=== PATIENT | female | born 1950 | race Caucasian/White ===

== ENCOUNTER → 2017-03-01 | Outpatient (CLI) | payer MEDICARE, BC ==
[~2017-03-01] MED LIST: CETI-269 PO; CYCL-375 PO; FLUT9.9S EA NOSTRIL; GADOBUTROL 10mMol/10ml INJECTION IV ONE; HYDR-4078 PO; NAPR220T61 PO; OXYB10TA PO; PROP60CA2 PO; SALINE FLUSH 10ml SYRINGE ONE; SENN-125 PO; SODI30SP3 NAS
--- NOTE | 2017-03-01 14:30 | DI ---
Indication: ITS.REASON: M54.16 LUMBAR RADICULOPATHY PROCEDURE: CT LUMBAR SPINE W/O CONTRAST: Encounter: Initial Comparison: None Technique: Axial noncontrast CT imaging of the lumbar spine was performed with coronal and sagittal two-dimensional reformats. Automated Exposure Control and Iterative Reconstruction dose reducing techniques were utilized. FINDINGS: The alignment of the lumbar spine is abnormal with grade 1 degenerative anterolisthesis of L4 on L5. Posterior L2-L5 spinal fusion with pedicle screws and rods. This causes metallic artifact. No definite evidence of hardware loosening or failure. No acute fracture identified. Multiple Schmorl's nodes in the lower thoracic and lumbar spine. Paraspinal soft tissues show no acute findings. Segmental analysis: L1-L2: Degenerative facet disease with a small disk osteophyte complex contributing to moderate central canal stenosis. Severe bilateral neural foraminal stenosis. L2-L3: Posterior decompression. Mild bony neural foraminal stenosis bilaterally. L3-L4: Posterior decompression. Degenerative facet hypertrophy. No significant neural foraminal stenosis. L4-L5: Posterior decompression. No significant neural foraminal stenosis. L5-S1: Posterior decompression. Mild left and moderate right neural foraminal stenosis. Impression: Postoperative and degenerative changes as above. .
--- NOTE | 2017-03-01 15:36 | DI ---
Indication: ITS.REASON: M54.16 LUMBAR RADICULOPATHY PROCEDURE: MRI LUMBAR SPINE W/WO CONTRAST: Encounter: Initial Comparison: CT lumbar spine from today Technique: Multiplanar multisequence MR imaging of the lumbar spine was performed with and without contrast. Contrast: 10 mL Gadavist Findings: Alignment lumbar spine is stable from today's comparison. There is degenerative grade 1 anterolisthesis of L4 on L5. No acute fracture identified. Posterior L2-L5 spinal fusion with decompression is noted. There is no obvious evidence of hardware loosening or failure by MRI. Conus medullaris terminates normally at L2. The paraspinal soft tissues are unremarkable. Segmental analysis: L1-L2: Disk osteophyte complex with degenerative facet change resulting in moderate central canal stenosis. Moderate to severe bilateral neural foraminal stenosis. L2-L3: Posterior decompression. No focal disk herniation. Mild bilateral neural foraminal stenosis. L3-L4: Posterior decompression. Moderate disk height loss. Mild bilateral neural foraminal stenosis. L4-L5: Posterior decompression. No focal disk herniation. Degenerative facet hypertrophy. No significant neural foraminal stenosis. L5-S1: No focal disk herniation. Posterior decompression. Moderate bilateral neural foraminal stenosis. Postcontrast images show no areas of concerning postcontrast enhancement. Impression: No MR evidence of hardware loosening or infection. Degenerative disk and facet changes with areas of neural foraminal stenosis as above. .
== END ==
LOC: IMA 13:40
PROVIDERS: ATTEND Family Medicine
DX: M48.06 Spinal stenosis, lumbar region (principal); M47.896 Other spondylosis, lumbar region; M51.36 Other intervertebral disc degeneration, lumbar region; Z98.890 Other specified postprocedural states; M54.16 Radiculopathy, lumbar region
CPT/HCPCS: 72131; 72158; A9585

== ENCOUNTER 2017-05-30 05:26 | Inpatient (IN) ==
[2017-05-30] MEDS ORDERED: ONDANSETRON 4 MG/2 ML INJECTION IVP ONE (05:33)
[2017-05-30] MEDS ORDERED: CEFAZOLIN 1 G INJECTION IVP ONE (05:33)
[2017-05-30] MEDS ORDERED: EPINEPHrine 0.25 MG, BUPIVACAINE 0.25% PF 30 ML, MORPHINE SULFATE 15 MG, KETOROLAC INJ ... OPSITE ONE (05:33)
[2017-05-30] MEDS ORDERED: DEXAMETHASONE 4 MG/ML INJECTION IVP ONE (05:33)
[2017-05-30] MEDS ORDERED: MELOXICAM 15 MG TABLET PO ONE (05:33)
[2017-05-30] MEDS ORDERED: FAMOTIDINE PB 20 MG/50 ML BAG IV ONE (05:33)
[2017-05-30] MEDS ORDERED: NOZIN NASAL SWAB NAS ONE ×2 (05:33→10:59)
[2017-05-30] MEDS ORDERED: ACETAMINOPHEN 500 MG TABLET PO ONE (05:33)
[2017-05-30] MEDS ORDERED: SALINE FLUSH 10ml SYRINGE IVF PRN (05:33)
[2017-05-30] MEDS ORDERED: LIDOCAINE 1% (10mg/ml) 10mL MDV SQ ONE (05:33)
[2017-05-30] MEDS ORDERED: METOCLOPRAMIDE 10mg/2ml INJECTION IVP ONE (05:33)
[2017-05-30 05:51] VITALS: BMI 38.7
[2017-05-30] MEDS: LR 1,000 ML IV SCH ×2 (06:10→08:45)
[2017-05-30] MEDS ORDERED: LIDOCAINE 1% (10mg/ml) 2mL INJ PF SDV ID ONE (06:11)
[2017-05-30] MEDS ORDERED: VANCOMYCIN 1,000 MG INJECTION ONE ×2 (06:12→06:13)
--- NOTE | 2017-05-30 06:59 | History & Physical Update ---
- History and Physical Update Date: 05/30/17 Update: I evaluated this patient and found no changes in the history and clinical exam findings. The treatment plan and recommendations are also unchanged from the previous documentation.
[2017-05-30] MEDS ORDERED: TRANEXAMIC ACID 1gm/NS 100ml IRR MIX IR ONE (07:00)
[2017-05-30] MEDS ORDERED: SUCCINYLCHOLINE 20mg/mL 10mL INJECTION ONE (07:02)
[2017-05-30] MEDS ORDERED: PROPOFOL 20 ML ONE (07:02)
[2017-05-30] MEDS ORDERED: LIDOCAINE 2% JELLY Tube 30ml ONE (07:04)
[2017-05-30] MEDS ORDERED: FentaNYL 100 MCG/2 ML INJECTION ONE (07:14)
[2017-05-30] MEDS ORDERED: HYDROMORPHONE 2 MG/ML INJECTION ONE (07:25)
[2017-05-30] MEDS ORDERED: ONDANSETRON 4 MG/2 ML INJECTION ONE (07:26)
[2017-05-30] MEDS ORDERED: DEXAMETHASONE 4 MG/ML INJECTION ONE (07:26)
[2017-05-30] MEDS ORDERED: DiphenhydrAMINE 50 MG/ML INJECTION ONE (07:26)
[2017-05-30] MEDS ORDERED: EPHEDRINE 50mg/ml INJECTION ONE (07:41)
[2017-05-30] MEDS ORDERED: SALINE FLUSH 10ml SYRINGE ONE (07:41)
--- NOTE | 2017-05-30 08:03 | Anesthesia Preoperative Report ---
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 Proposed Procedure: right total hip, robotic NPO Since Date: 05/29/17 NPO Since Time: 23:00 (po meds this am, small sip) Allergies/Adverse Reactions: Allergies Allergy/AdvReac Type Severity Reaction Status Date / Time No Known Allergies Allergy Verified 05/30/17 05:46 - Vital Signs Vital Signs: Temperature 97.6 F 05/30/17 05:49 Pulse Rate 67 05/30/17 05:49 Respiratory Rate 16 05/30/17 05:49 Blood Pressure 141/66 H 05/30/17 05:49 Pulse Oximetry 95 05/30/17 05:49 Oxygen Delivery Method Room Air Height and Weight: Height 5 ft 6 in Weight 108.9 kg Body Mass Index 38.7 - Medications Inpatient Medications: Current Medications Lactated Ringer's (Lactated Ringers) 1,000 mls @ 50 mls/hr IV .Q20H GEMA Sodium Chloride (Iv Flush) 10 - 80 ml IVF PRN PRN PRN Reason: [place] Home Medications: Home Medications Medication Instructions Recorded Confirmed Type Cyclobenzaprine HCl 1 tab PO HS PRN #0 tab 03/09/17 05/30/17 History Oxybutynin Chloride [Oxybutynin 1 tab PO DAILY #0 03/09/17 05/30/17 History Chloride ER] Sennosides/Docusate Sodium [Eql 2 tab PO DAILY #0 03/09/17 05/30/17 History Stool Softener-Stim Lax Tb] Sodium Chloride [Saline Nasal 1 - 2 spray CHRISTIANO DAILY #0 ml 03/09/17 05/30/17 History [place]] Acetaminophen [Tylenol] 1 - 2 tab PO HS PRN 05/11/17 05/30/17 History Hydrocodone/APAP 5/325 [[place] 1 tab PO HS PRN 05/11/17 05/30/17 History 5/325] Naproxen Sodium [Aleve] 1 cap PO BIDWM PRN 05/11/17 05/30/17 History Polyethylene Glycol 3350 [Miralax] 17 gm PO DAILY 05/11/17 05/30/17 History Is Patient on Beta Ebony?: Yes Beta Ebony Last Dose Date/Time: propranolol this am for migraines - Medical History Respiratory: Reports: Sleep Apnea DENIES: Asthma, Chronic Obstructive Pulmonary Disease (COPD), Pulmonary Embolism Cardiovascular: Reports: Hypertension DENIES: Abnormal EKG, Angina, Coronary Artery Disease, Heart Murmur, Myocardial Infarction Gastrointestional: DENIES: Gastroesophageal Reflux Disease Neuro/Musculoskeletal: Reports: Back Problems (lumbar fusion hx) Denies: Seizures Renal/Endocrine: DENIES: Diabetes Mellitus Type 2 Other History: DENIES: Anesthesia Reactions - Surgical History HEENT Surgeries: Reports: Tonsillectomy, Other (Exc soft tissue mass of neck) Cardiac Surgeries/Treatments: Reports: Cardiac Catheterization (NEGATIVE ABOUT 2012) Respiratory Surgery/Treatments: Reports: CPAP Use GI Surgery/Treatments: Reports: Appendectomy, Cholecystectomy Musculoskeletal Surgery/Tx: Reports: Total Knee Replacement (Rt & Lt), Other ( lumbar back x2, with hardware) Reproductive Surgery/Treatment: Reports: Tubal Ligation Anesthesia Reactions: None Hx Family Anesthesia Reaction: No History of Motion Sickness: No - Social History Smoking Status: Former smoker Hx Chewing Tobacco Use: No Second Hand Exposure: No Substance Use Type: does not use Alcohol Intake Frequency: does not drink - Pertinent Findings EKG Rhythm: Normal Sinus Rhythm - Physical Exam Respiratory Exam: Present: lungs clear Cardiovascular Exam: Present: regular rate and rhythm - Airway Assessment Mallampati Score: II TMD: 3 Fingerbreadths Neck Extension: fair Overall Assessment: no airway concerns - Plan Anesthesia: General Inhalation Gases - Discussion Discussion: Discussed risks/options/alternatives of anesthesia and questions answered. Patient consents. Nursing pain assessment noted. Present for Discussion: spouse Attestation Statement: Prior to the delivery of any anesthetic medication, I examined the patient, developed the plan, obtained the patient's consent and discussed the risk and benefits of the procedure with the patient/guardian. - Additional Information Seen by Anesthesia: Yes
[2017-05-30] MEDS ORDERED: VANCOMYCIN 1,000 MG INJECTION IAR ONE (08:32)
--- NOTE | 2017-05-30 08:55 | Operative Note ---
- Procedure Date of Admission: 05/30/17 Side: right Preoperative Diagnosis: hip primary DJD Postoperative Diagnosis: Same as preoperative diagnosis. Operation: total hip arthroplasty (right) Surgeon: Mary Berry MD Php Mysql Web Developer: JAEL Saavedra Complications: None. Anesthesia: General Inhalation Gases Estimated Blood Loss: See Anesthesia Record. Fluids: Please see Anesthesia Record. Description of Procedure: Mrs. Mike and her left hip were identified and marked in the preoperative holding area. She was brought back to the operating suite and spinal anesthetic was administered. She was then placed in a lateral decubitus position with her left hip up. The left lower extremity was prepped and draped in my normal sterile fashion. Timeout was performed. The [employer] robotic arm was used to assist with the surgery. A posterior approach was utilized. An approximately 15 cm incision was made in the skin and dissection carried down to the muscle fascia which was then split in line with skin incision. A checkpoint was placed in the greater trochanter. The short external rotators were identified and tagged and detached. A capsulotomy was performed and the hip dislocated. A femoral neck osteotomy was performed at the pre-templated level measuring down from the femoral head 51 mm. The head was removed and acetabulum exposed. Labrum was removed. A checkpoint was placed superior to the acetabulum. The acetabulum was then registered with the robot. The robotic arm was then used to ream with a 51 reamer at 40 of tilt and 25 of anteversion. The robot then was again used to place a 52 Trident cup in 40 of tilt and 25 of anteversion. A liner was then placed. The proximal femur was exposed and prepared with a cookie cutter followed by reaming and broaching to a size 9. We trialed with a +5 head. This gave excellent stability but touch tight and a very tight shuck test. After thorough irrigation a final Accolade 2 size 9 stem with 132 neck was placed. This time we trialed the +2.5 head. Leg length and offset were checked with the robot and were good. A final +2.5 ceramic head was placed and the hip reduced. Betadine solution was used to irrigate throughout the case. It was followed by normal saline irrigation. 1 g of TXA was allowed to sit in the wound for 5 minutes and then suctioned out. Joint cocktail was injected throughout soft tissue. The capsulotomy was repaired with Ethibond. Short external rotators were also repaired with Ethibond. 1 g of vancomycin powder was placed into the wound. The muscle fascia was then repaired with #1 Vicryl. I then left my system to close the subcutaneous tissue with 2-0 Vicryl followed by running 4-0 Monocryl skin followed by Dermabond and a sterile dressing. The patient with any placed back into supine position and taken to recovery room in the care of anesthesia.
[2017-05-30] MEDS ORDERED: HYDROMORPHONE 2 MG/ML INJECTION IVP PRN (09:35)
[2017-05-30] MEDS ORDERED: LORazepam 1 MG TABLET PO PRN (10:59)
[2017-05-30] MEDS ORDERED: NAPROXEN 220 MG TABLET PO PRN (10:59)
[2017-05-30] MEDS ORDERED: PROPRANOLOL LA 60 MG CAPSULE PO SCH (10:59)
[2017-05-30] MEDS ORDERED: CYCLOBENZAPRINE 10 MG TABLET PO PRN (10:59)
[2017-05-30] MEDS ORDERED: DOCUSATE SODIUM 100 MG CAPSULE PO SCH (10:59)
[2017-05-30] MEDS ORDERED: ONDANSETRON 4 MG/2 ML INJECTION IVP PRN (10:59)
[2017-05-30] MEDS ORDERED: DiphenhydrAMINE 50 MG/ML INJECTION IVP PRN (10:59)
[2017-05-30] MEDS ORDERED: POLYETHYL GLYCOL 3350 17gm PACKET PO SCH ×2 (10:59)
[2017-05-30] MEDS ORDERED: SALINE 0.65% NASAL SPRAY 44 ML BOTTLE EA NOSTRIL PRN (10:59)
[2017-05-30] MEDS ORDERED: DiphenhydrAMINE 25 MG CAPSULE PO PRN (10:59)
[2017-05-30] MEDS: NS 1,000 ML IV SCH (11:07)
--- NOTE | 2017-05-30 11:20 | XRay Report ---
Indication: Post Op PROCEDURE: XR pelvis w/ 1 view RT hip: Encounter: Initial Comparison: CT pelvis dated May 17, 2017 Findings: Postoperative changes of right total hip replacement are seen. There is expected postoperative subcutaneous gas. No evidence of hardware failure or acute fracture. No retained radiopaque surgical instruments or sponges seen. Subcutaneous calcifications projecting over the right iliac wing. Impression: New right total hip prosthesis without evidence of immediate complication. .
--- NOTE | 2017-05-30 11:29 | Anesthesia Postoperative Note ---
- Date and Time Date: 05/30/17 Time: 09:59 - Status Patient Participated in Evaluation: Patient Participated in Person Vital Signs: Temperature 97.7 F 05/30/17 10:48 Pulse Rate 64 05/30/17 10:48 Respiratory Rate 16 05/30/17 10:48 Blood Pressure 122/72 05/30/17 10:48 Pulse Oximetry 99 05/30/17 10:48 Oxygen Delivery Method Room Air Oxygen Flow Rate 6 Respiratory Function: Airway Patent Cardiovascular Function: Regular Pulse EKG Rhythm: Normal Sinus Rhythm Mental Status: Alert and Oriented Pain Intensity: 3 Hydration: IV Infusing Complications During Recover: None Apparent - Follow-Up Instructions Instructions: Per Surgeon
[2017-05-30] MEDS ORDERED: WARFARIN 5 MG TABLET PO SCH (12:00)
--- NOTE | 2017-05-30 13:54 | Pharmacy Consult ---
Pharmacy Consult-Warfarin - Laboratory Information COUMADIN CONSULT (Initial): Dx: Total Right Hip Arthroplasty Baseline INR = N/A. 67 yo female who had right Total Hip Arthroplasty. The patient has not been on warfarin as an outpatient. I will give Warfarin 5 mg today per Orthopaedic Wararin Dosing Protocol. The Pharmacy will continue to monitor and make adjustments accordingly. Thank you for the Orthopaedic Warfarin Dosing Protocol, Osman Marley, Pharmacist.
[2017-05-30] MEDS: NOZIN NASAL SWAB NAS SCH ×2 (14:03→22:09)
[2017-05-30] MEDS: Oxycodone *IR* 5 MG TABLET PO PRN ×3 (14:04→23:32)
[2017-05-30] MEDS: ACETAMINOPHEN 325 MG TABLET PO SCH ×3 (14:47→22:10)
[2017-05-30] MEDS: CEFAZOLIN 2 G in NS 100 ML IV SCH ×2 (15:10→23:29)
[2017-05-30] MEDS ORDERED: SENNOSIDES 8.6 MG TABLET PO SCH (22:00)
[2017-05-30] MEDS: DOCUSATE SODIUM 100 MG CAPSULE PO SCH (22:10)
[2017-05-30] MEDS: ENOXAPARIN 40 MG/0.4 ML INJECTION SQ SCH (22:10)
[2017-05-31] MEDS: NS 1,000 ML IV SCH ×2 (01:32→14:04)
[2017-05-31] MEDS: NOZIN NASAL SWAB NAS SCH (05:59)
[2017-05-31] MEDS ORDERED: SENNOSIDES 8.6 MG TABLET PO PRN (07:04)
--- NOTE | 2017-05-31 08:12 | Pharmacy Consult ---
Pharmacy Consult-Warfarin - Laboratory Information 05/31/17 04:14 INR 1.17 - Consult Information Will give warfarin 4mg po today.Will continue to monitor. Thank you.
--- NOTE | 2017-05-31 08:14 | Orthopedic Progress Note ---
Date: Subjective/Severity of Illness: Doing great. Pain is well controlled. Denies CP or SOA. No cough. She is hopeful to go home today. Feels like she has restless leg syndrome but denies numbness or tingling in the leg. Tolerated activity without problems. Had a DVT after her TKA and was on Coumadin in the past. Orthopedic Objective PO Vital signs: Temperature 98.6 F 05/31/17 07:58 Pulse Rate 85 05/31/17 07:58 Respiratory Rate 18 05/31/17 07:58 Blood Pressure 161/70 H 05/31/17 07:58 Pulse Oximetry 100 05/31/17 07:58 Oxygen Delivery Method Room Air Oxygen Flow Rate 6 Height and Weight: Height 5 ft 6 in Weight 240 lb 1.334 oz Body Mass Index 38.7 - Constitutional General Appearance: Present: alert, no acute distress - Respiratory Exam Present: non-labored - Cardiovascular Exam Present: pedal pulses intact - Extremities Exam Extremities: Present: pulses intact. Absent: calf tenderness - Surgical Site Incision: Mepilex dressing intact, dressing intact (To right iliac crest.), no drainage - Integumentary Exam Present: pink, warm, dry - Neurological Exam Present: no deficits - Psychiatric Exam Present: alert, normal affect - Labs Result Diagrams: 05/31/17 04:14 05/31/17 04:14 Abnormal lab results 05/31/17 05/31/17 Range/Units 04:14 04:14 RBC 3.90 L (4.00-5.20) M/MM3 Hgb 9.8 L (12-16) GM/DL Hct 32.2 L (36-46) % MCH 25.1 L (26-34) UUG MCHC 30.4 L (31-37) GM/DL Creatinine 0.6 L (0.7-1.2) MG/DL Calcium 10.4 H (8.4-10.2) MG/DL H & H 05/31/17 Range/Units 04:14 Hgb 9.8 L (12-16) GM/DL Hct 32.2 L (36-46) % Coagulation 05/31/17 Range/Units 04:14 INR 1.17 (0.99-1.21) Orthopedic Assessment and Plan (1) Degenerative arthritis of hip Status: Acute Qualifiers: Osteoarthritis type: primary Laterality: right Qualified Code(s): M16.11 - Unilateral primary osteoarthritis, right hip Assessment and Plan: Hx of DVT in the past so she will be covered with Lovenox / Coumadin protocol. She was on both of these in the past and is familiar with how it works. She is interested in doing her Lovenox shots herself or going to Dr Elias's office for them. Will need INR's 2x/wk and Lovenox until INR is therapeutic. Cont SCDs while in the hospital. Cont PT / OT. CM for discharge planning. Pt expects discharge to her home. Hospital Course Summary Disclaimer: The visit summary below is not to be considered part of the above Progress Note.
[2017-05-31] MEDS ORDERED: PROPRANOLOL LA 60 MG CAPSULE PO SCH ×2 (09:00→09:30)
[2017-05-31] MEDS ORDERED: POLYETHYL GLYCOL 3350 17gm PACKET PO SCH (09:00)
[2017-05-31] MEDS: ACETAMINOPHEN 325 MG TABLET PO SCH ×2 (09:12→14:05)
[2017-05-31] MEDS: DOCUSATE SODIUM 100 MG CAPSULE PO SCH (09:12)
[2017-05-31] MEDS: Oxycodone *IR* 5 MG TABLET PO PRN (11:49)
[2017-05-31] MEDS ORDERED: WARFARIN 4 MG TABLET PO SCH (12:00)
--- NOTE | 2017-05-31 14:17 | Discharge Summary ---
Orthopedic Discharge Info Date of admission: 05/30/17 05:26 Primary care physician: Fred Bolivar MD Attending Physician: Kvng Berry MD Consults: 05/30/17 05:33 Consult to Anesthesiology [CONS] Routine Consulting Provider: JAEL Rock Reason For Exam: Preoperative Assessment 05/30/17 10:59 Case Management Consult [CONS] Routine Reason For Exam: Discharge Planning DME-Walker [CONS] Routine Height: 5 ft 6 in Weight: 240 lb 1.334 oz Comment: change dressing in 2 weeks Pharmacy Consult [CONS] Routine Pharmacy Consult: Coumadin/Warfarin Total Joint Outpatient Therapy [CONS] Routine Comment: change dressing in 2 weeks - Discharge Diagnosis (1) Degenerative arthritis of hip Qualifiers: Osteoarthritis type: primary Laterality: right Qualified Code(s): M16.11 - Unilateral primary osteoarthritis, right hip Status: Acute - Procedures Procedures: Right [place] robotic assist - Laboratory Result Diagrams: 05/31/17 04:14 05/31/17 04:14 Laboratory: Abnormal lab results 05/31/17 05/31/17 Range/Units 04:14 04:14 RBC 3.90 L (4.00-5.20) M/MM3 Hgb 9.8 L (12-16) GM/DL Hct 32.2 L (36-46) % MCH 25.1 L (26-34) UUG MCHC 30.4 L (31-37) GM/DL Creatinine 0.6 L (0.7-1.2) MG/DL Calcium 10.4 H (8.4-10.2) MG/DL H & H 05/31/17 Range/Units 04:14 Hgb 9.8 L (12-16) GM/DL Hct 32.2 L (36-46) % Coagulation 05/31/17 Range/Units 04:14 INR 1.17 (0.99-1.21) Orthopedic Discharge HPI - HPI Comments This patient was admitted for elective surgical tx of end stage degenerative joint disease that failed to respond to conservative treatment. Further details of this is found in the admission H&P. Orthopedic Hospital Course Hospital course: 05/31/17 14:14 After appropriate preoperative clearance and signing of operative consent, the patient was given IV antibiotics, according to orthopedic protocol. The patient was taken to the operating room and underwent elective joint arthroplasty. Following surgery, antibiotics were discontinued less than 24 hours according to joint protocol. Appropriate anticoagulants were initiated and SCDs added for DVT prevention. The dressing was clean, dry, and intact. Pain control was obtained via multimodal approach. Bowel motivation addressed with scheduled and PRN medications. Early mobilization was initiated through PT services. Discharge arrangements made by a collaborative effort between the patient and Case Management. Follow-up is scheduled in 2-3 weeks. Discharge instructions given by orthopedic providers and nursing staff at discharge. Discharge condition was good. Ongoing care required?: No - Postoperative Anemia patient received IVF, labs monitored daily, no intervention required, HGB drop- acceptable Discharge Plan - Med Rec/Dispo Referrals/Follow Up: Kvng Berry MD [Physician] - 06/21/17 1:30 pm [place] Instructions: [facility] [place] Inst[place], [facility] [place] Postop Instructions Additional Instructions: DR BOLIVAR AT [facility] FOR INR LAB DRAW TWICE A WEEK (MONDAYS AND THURSDAYS) FOR FOUR WEEKS. PHONE [phone] [facility] ON 06/05/2017 AT 9:00AM FOR PHYSICAL THERAPY EVAL. PHONE Prescriptions: New Oxycodone *Ir* [Roxicodone *Ir*] 5 - 15 mg PO Q3H PRN #60 tablet PRN Reason: Breakthrough Pain Acetaminophen [Tylenol] 650 mg PO QID tablet Enoxaparin Sodium [Lovenox] 40 mg SQ Q24H #5 syringe Warfarin [Coumadin] 2 tab PO NOON #60 tab Continue Sennosides/Docusate Sodium [Eql Stool Softener-Stim Lax Tb] 2 tab PO DAILY # 0 Sodium Chloride [Saline Nasal [place]] 1 - 2 spray CHRISTIANO DAILY #0 ml Cyclobenzaprine HCl 1 tab PO HS PRN #0 tab PRN Reason: MUSCLE SPASM Oxybutynin Chloride [Oxybutynin Chloride ER] 1 tab PO DAILY #0 Polyethylene Glycol 3350 [Miralax] 17 gm PO DAILY propranolol ER 60 mg capsule,24 hr,extended release 60 mg PO DAILY #90 cap Discontinued Hydrocodone/APAP 5/325 [[place] 5/325] 1 tab PO HS PRN PRN Reason: Pain Acetaminophen [Tylenol] 1 - 2 tab PO HS PRN PRN Reason: Pain Naproxen Sodium [Aleve] 1 cap PO BIDWM PRN PRN Reason: Pain - Disposition 01 Discharged Home, Self-Care
[2017-05-31 14:41] VITALS: BP 110/65; PULSE 80; RESP 16; TEMP 97.8; O2SAT 93
[2017-05-31] MEDS: ENOXAPARIN 40 MG/0.4 ML INJECTION SQ SCH (14:59)
[2017-06-01] MEDS ORDERED: BISACODYL 10 MG SUPPOSITORY RECTALLY SCH (20:00)
== END 2017-05-31 15:15 | disposition home or self-care (01) | DRG 470 ==
LOC: SRG 05:26
PROVIDERS: ADMIT Orthopaedic Surgery; ATTEND Orthopaedic Surgery